=== PATIENT | female | born 1955 | race Caucasian/White ===

== ENCOUNTER 2022-11-29 09:30 | Emergency (ER) | payer OTHER, SELFPAY ==
[2022-11-29 09:38] VITALS: BP 173/94; PULSE 109; RESP 18
[2022-11-29 09:40] VITALS: BP 173/94; PULSE 110; RESP 18; TEMP 36.4; O2SAT 95; BMI 33.6
--- NOTE | 2022-11-29 09:41 | ECG_ITS ---
APPROVED REPORT Exam: Resting ECG HR:103 bpm ECG Measurements Heart Rate 103 AXES NV 152 P 45 QRSd 103 QRS 2 QT 347 T 47 QTc 406 Conclusion SINUS TACHYCARDIA ABNORMAL RHYTHM ECG UNCONFIRMED REPORT Electronically signed by : Jose Raul Pool MD 11/30/2022 19:55:42
--- NOTE | 2022-11-29 09:42 | CT_ITS ---
PROCEDURE INFORMATION: Exam: CT Abdomen And Pelvis With Contrast Exam date and time: 11/29/2022 10:17 AM Age: 67 years old Clinical indication: Abdominal pain; Generalized; Additional info: Llq abd pain and bloating TECHNIQUE: Imaging protocol: Computed tomography of the abdomen and pelvis with contrast. Radiation optimization: All CT scans at this facility use at least one of these dose optimization techniques: automated exposure control; mA and/or kV adjustment per patient size (includes targeted exams where dose is matched to clinical indication); or iterative reconstruction. Contrast material: ISOVUE; Contrast volume: 75 ml; Contrast route: IV; REPORTING DATA: Count of CT and Cardiac NM exams in prior 12 months: This patient has received 0 known CTs and 0 known cardiac nuclear medicine studies in the 12 months prior to the current study. COMPARISON: No relevant prior studies available. FINDINGS: Liver: Hepatic steatosis Gallbladder and bile ducts: Normal. No calcified stones. No ductal dilation. Pancreas: Normal. No ductal dilation. Spleen: Calcified splenic granuloma Adrenal glands: Normal. No mass. Kidneys and ureters: Normal. No hydronephrosis. Stomach and bowel: Colonic diverticulosis. Very mild stranding of the pericolonic mesenteric fat is demonstrated in the region of the distal descending and sigmoid colon. Mild changes of diverticulitis could not be excluded. Clinically correlate. Appendix: No evidence of appendicitis. Intraperitoneal space: Unremarkable. No free air. No significant fluid collection. Vasculature: Unremarkable. No abdominal aortic aneurysm. Lymph nodes: Unremarkable. No enlarged lymph nodes. Urinary bladder: Unremarkable as visualized. Reproductive: Fibroid uterus. Bones/joints: 3 mm anterolisthesis of L4 with respect to L5. Soft tissues: Unremarkable. IMPRESSION: Colonic diverticulosis. Very mild stranding of the pericolonic mesenteric fat is demonstrated in the region of the distal descending and sigmoid colon. Mild changes of diverticulitis could not be excluded. Clinically correlate.
--- NOTE | 2022-11-29 09:44 | HMH.EDGENADL ---
Discharge Plan Disposition Patient Disposition: Home, Self-Care Condition: Fair Prescriptions Prescriptions: New amoxicillin-pot clavulanate 875-125 mg tablet 1 tab PO BID 7 Days Qty: 14 0RF No Action atorvastatin 40 mg tablet 40 mg PO DAILY Patient Comments: TAKE 1 TABLET BY MOUTH EVERY NIGHT metformin 500 mg tablet 500 mg PO BID Patient Comments: TAKE 2 TABLETS BY MOUTH TWICE DAILY WITH MEALS metoprolol succinate 25 mg tablet extended release 24 hr 25 mg PO DAILY Patient Comments: TAKE 1 TABLET BY MOUTH EVERY DAY FOR BLOOD PRESSURE losartan 100 mg tablet 100 mg PO DAILY Patient Comments: TAKE 1 TABLET BY MOUTH EVERY DAY FOR BLOOD PRESSURE glipizide 5 mg tablet 5 mg PO BID Patient Comments: TAKE 1 TABLET BY MOUTH TWICE DAILY BEFORE MEALS Referrals Follow up/Referrals: Provider,Referral, MD [Primary Care Provider] - See instructions Activity Restrictions/Add. Instructions Additional Instructions/Restrictions: At this time is felt you are safe to be discharged home. If new or worsening symptoms please do not hesitate to return the emergency department. Please advance your diet as tolerated as we discussed. Please take your medications as discussed and follow-up with your family doctor within the next 5 days for continued evaluation. Clinical Impressions Clinical Impression: Diverticulitis, Fibroid, uterine Instructions Patient Instructions: DI for Diverticulitis Discharge ED Provider: Enzo Villarreal General Adult HPI General Chief complaint: Abdominal Pain Stated complaint: left side and stomach pain, right shoulder Time Seen by Provider: 11/29/22 09:34 Mode of Arrival: Ambulatory Source of Information: Patient Limitations: No Limitations Description of Symptoms (Recalled from ER Triage Doc. by RN): since yesterday pt has noticed upper abd pain and pain below her right shoulder blade with diarrhea and nausea. pt denies fever soa or CP. History of Present Illness HPI narrative: Patient is a 67-year-old female with past medical history of [id number] diabetes who presents emergency department for evaluation of abdominal pain. Onset was acute, over the last 24 hours, left upper quadrant, left lower quadrant. There is associated bloating. Patient is stooling regularly, denies blood in her stool. Nausea without associated vomiting. Patient is moderate to severe in intensity. Denies chest pain, cough, shortness of breath, fevers. No other acute complaints at this time. Patient has had no previous abdominal surgeries. Related Data Home Medications Medication Instructions Recorded Confirmed atorvastatin 40 mg tablet 40 mg PO DAILY High Cholesterol 11/29/22 11/29/22 glipizide 5 mg tablet 5 mg PO BID Diabetes 11/29/22 11/29/22 losartan 100 mg tablet 100 mg PO DAILY High Blood Pressure 11/29/22 11/29/22 metformin 500 mg tablet 500 mg PO BID Diabetes 11/29/22 11/29/22 metoprolol succinate 25 mg 25 mg PO DAILY High Blood Pressure 11/29/22 11/29/22 tablet,extended release 24 hr Previous Rx's Medication Instructions Recorded amoxicillin 875 mg-potassium 1 tab PO BID 7 days #14 tabs 11/29/22 clavulanate 125 mg tablet Allergies Allergy/AdvReac Type Severity Reaction Status Date / Time No Known Allergies Allergy Verified 11/29/22 09:47 [facility] Disclaimer: The information contained in this section may have been updated after the patient was seen, as this information can be updated by other users. Medical History (Updated 11/29/22 @ 13:36 by Enzo Villarreal MD) Diabetes Hyperlipidemia Hypertension Surgical History (Updated 11/29/22 @ 09:53 by Jerry Cisneros RN) History of tonsillectomy Tubal ligation status Social History (Updated 11/29/22 @ 09:54 by Jerry Cisneros RN) Smoking Status: Never smoker alcohol intake: never current occupational status: employed and unemployed Travel in
[2022-11-29 09:57] LABS: Microscopic, Urine URINE MICROSCOPIC (MICROSCOPIC)
[2022-11-29 09:58] LABS: Appearance,Urine CLEAR (Clear); Bilirubin,Urine Negative (Negative); Blood, Urine TRACE-I (Negative); Color,Urine YELLOW (Yellow); Glucose,Urine (UA) Negative (Negative); Ketones,Urine Negative (Negative); Leukocyte Esterase,Urine Negative (Negative); Nitrate,Urine Negative (Negative); Protein,Urine TRACE (Negative); Specific Gravity, Urine >= 1.030 (1.005-1.030); Urobilinogen,Urine 0.2 EU/dl (0.2)
[2022-11-29 09:58] LABS: Basophils % 0.3 % (0.1-2.0); Eosinophils # 0.1 K/mm3 (0.0-0.4); Eosinophils % 0.6 % (0.1-12.0); Hematocrit 45.6 % (37.0-47.0); Hemoglobin 14.5 g/dL (12.2-16.2); Lymphocytes % 20.8 % (10-50); Mean Corpuscular HGB Conc 31.8 g/dL (31.8-35.4); Mean Corpuscular Hemoglobin 27.5 pg (27.0-31.2); Mean Corpuscular Volume 86.7 fl (81-99); Mean Platelet Volume 7.6 fl (7.4-10.4); Monocytes # 0.3 K/mm3 (0.1-1.0); Monocytes % 3.1 % (1.7-9.3); Neutrophils # 7.1 K/mm3 (1.8-7.8); Neutrophils % 75.3 % (37.0-80.0); Platelet Count 381 K/mm3 (142-424); Red Blood Count 5.26 M/mm3 (4.20-5.40); Red Cell Distribution Width 14.1 % (11.5-17.5); White Blood Count 9.5 K/mm3 (4.8-10.8)
[2022-11-29 10:07] LABS: Alanine Aminotransferase 42 U/L (12-78); Albumin Level 4.8 g/dl (3.5-5.0); Albumin/Globulin Ratio 1.5 (1.1-1.8); Alkaline Phosphatase 114 U/L (38-126); Aspartate Amino Transferase 37 U/L (14-36); Bilirubin,Total 0.6 mg/dl (0.2-1.3); Blood Urea Nitrogen 14 mg/dl (7-17); Calcium 10.4 mg/dl (8.4-10.2); Carbon Dioxide 22 mmol/L (22.0-30.0); Chloride 104 mmol/L (98-107); Creatinine Clearance Estimated 71 mL/min (50-200); Estimated Glomerular Filt Rate 100 ml/min (>60); GFR (African American) 121 ML/MIN (>60); Globulin 3.1 g/dL (1.3-3.2); Glucose 159 mg/dl (74-100); Lipase 69 U/L (23-300); Sodium 137 mmol/L (136-145); Total Protein,Serum 7.9 g/dl (6.3-8.2)
[2022-11-29 10:08] LABS: Bacteria,Urine Trace /lpf; Squamous Epithelial Cell,Urine Occasional #/hpf (0-5)
[2022-11-29 10:09] LABS: Lactic Acid 2.4 mmol/L (0.7-2.1)
--- NOTE | 2022-11-29 10:13 | PC.NURSE ---
rad here to take pt to ct
[2022-11-29 10:21] LABS: Troponin I < 0.01 ng/ml (0.00-0.034)
--- NOTE | 2022-11-29 10:22 | PC.NURSE ---
pt transported to ct via stretcher and vegetable grader
--- NOTE | 2022-11-29 10:55 | PC.NURSE ---
PT ASSISTED TO BR
[2022-11-29 11:06] VITALS: BP 132/65; PULSE 87; RESP 17; O2SAT 95
[2022-11-29 11:31] VITALS: BP 145/68; PULSE 66; RESP 18; O2SAT 98
[2022-11-29 12:01] VITALS: BP 136/69; PULSE 69; RESP 18; O2SAT 97
--- NOTE | 2022-11-29 12:03 | PC.NURSE ---
pt up to bathroom
--- NOTE | 2022-11-29 13:33 | PC.NURSE ---
ICE WATER PROVIDED FOR PT
[2022-11-29 13:54] LABS: Reflex Lactic Add Lactic Reflex
[2022-11-29 13:57] VITALS: BP 132/61; PULSE 80; RESP 18; TEMP 36.7; O2SAT 98
== END 2022-11-29 14:02 | disposition home or self-care (01) ==
PROVIDERS: Emergency Provider Emergency Medicine; PCP Nurse Practitioner
DX: K57.92 Diverticulitis of intestine, part unspecified, without perforation or abscess without bleeding (principal); D25.9 Leiomyoma of uterus, unspecified; R10.12 Left upper quadrant pain; R10.32 Left lower quadrant pain; R11.0 Nausea; E11.9 Type 2 diabetes mellitus without complications; E78.5 Hyperlipidemia, unspecified; I10 Essential (primary) hypertension; R00.0 Tachycardia, unspecified
CPT/HCPCS: 74177; 80053; 81001; 83605; 83690; 84484; 85025; 87040; 93005; 96361; 96365; 96375; 99285; J2405; J2543; Q9967

== ENCOUNTER 2023-01-27 08:58 | Emergency (ER) | payer OTHER, SELFPAY ==
[2023-01-27] VITALS (10 sets, daily range): BP systolic 120–167; BP diastolic 58–78; PULSE 77–101; RESP 20; TEMP 36.5; O2SAT 96–99; BMI 32.3
[2023-01-27 09:19] LABS: Microscopic, Urine URINE MICROSCOPIC (MICROSCOPIC)
[2023-01-27 09:21] LABS: Appearance,Urine CLEAR (Clear); Blood, Urine Negative (Negative); Color,Urine YELLOW (Yellow); Glucose,Urine (UA) Negative (Negative); Ketones,Urine TRACE (Negative); Leukocyte Esterase,Urine TRACE (Negative); Nitrate,Urine Negative (Negative); PH,Urine 5.5 (5.0-8.5); Protein,Urine Negative (Negative); Specific Gravity, Urine >= 1.030 (1.005-1.030); Urobilinogen,Urine 0.2 EU/dl (0.2)
[2023-01-27 09:24] LABS: Basophils % 0.5 % (0.1-2.0); Eosinophils # 0.1 K/mm3 (0.0-0.4); Hematocrit 43.5 % (37.0-47.0); Hemoglobin 13.5 g/dL (12.2-16.2); Lymphocytes # 2.1 K/mm3 (0.7-4.5); Lymphocytes % 28.9 % (10-50); Mean Corpuscular HGB Conc 31.1 g/dL (31.8-35.4); Mean Corpuscular Hemoglobin 27.7 pg (27.0-31.2); Mean Corpuscular Volume 89.1 fl (81-99); Monocytes # 0.5 K/mm3 (0.1-1.0); Monocytes % 7.4 % (1.7-9.3); Neutrophils # 4.5 K/mm3 (1.8-7.8); Neutrophils % 62.2 % (37.0-80.0); Platelet Count 403 K/mm3 (142-424); Red Blood Count 4.88 M/mm3 (4.20-5.40); Red Cell Distribution Width 14.5 % (11.5-17.5); White Blood Count 7.2 K/mm3 (4.8-10.8)
[2023-01-27 09:25] LABS: Chloride 99 mmol/L (98-107); Sodium 135 mmol/L (136-145)
[2023-01-27 09:26] LABS: Potassium 3.7 mmoL/L (3.5-5.1)
[2023-01-27 09:28] LABS: Alanine Aminotransferase 42 U/L (12-78); Albumin Level 4.1 g/dl (3.5-5.0); Albumin/Globulin Ratio 1.1 (1.1-1.8); Alkaline Phosphatase 97 U/L (38-126); Anion Gap 15.7 mEq/L (5-15); Aspartate Amino Transferase 48 U/L (14-36); Bilirubin,Total 0.6 mg/dl (0.2-1.3); Blood Urea Nitrogen 31 mg/dl (7-17); Carbon Dioxide 24 mmol/L (22.0-30.0); Creatinine Clearance Estimated 62 mL/min (50-200); Estimated Glomerular Filt Rate 50 ml/min (>60); GFR (African American) 60 ML/MIN (>60); Globulin 3.7 g/dL (1.3-3.2); Total Protein,Serum 7.8 g/dl (6.3-8.2)
[2023-01-27 09:29] LABS: Calcium 9.3 mg/dl (8.4-10.2); Glucose 160 mg/dl (74-100)
--- NOTE | 2023-01-27 09:33 | CT_ITS ---
FINAL REPORT TECHNIQUE: Thin section axial images were obtained through the abdomen after intravenous contrast. Reconstruction images were obtained from the axial data. Exam was performed using dose reduction techniques. CLINICAL HISTORY: LLQ abd pain, vomiting, h/o diverticulitis COMPARISON: 11/29/2022 FINDINGS: The lung bases are clear. The liver is homogeneous. The gallbladder is present. The spleen, adrenal glands, and pancreas are unremarkable. There is no hydronephrosis or solid renal mass. Abdominal GI tract is without acute abnormality. There is no abdominal lymphadenopathy or ascites. The uterus is mildly enlarged and lobular consistent with fibroids. There is long segment colonic wall thickening, most pronounced distally most consistent with colitis. There is diverticulosis. The appendix is normal. There is no pelvic lymphadenopathy or ascites. No acute osseous abnormalities identified. IMPRESSION: Long segment colonic wall thickening most consistent with infectious or inflammatory colitis. Reviewed, Interpreted and Dictated by Annelise Medina MD Transcribed by Keyla Garcia Authenticated and [facility]
[2023-01-27 09:37] LABS: Bilirubin,Urine 1+ (Negative)
[2023-01-27 09:38] LABS: Bacteria,Urine Trace /lpf; Hyaline Casts,Urine Occasional #/lpf (0); Squamous Epithelial Cell,Urine Occasional #/hpf (0-5); WBC,Urine Occasional #/hpf (0-3)
--- NOTE | 2023-01-27 09:38 | HMH.EDGENADL ---
Discharge Plan Disposition Patient Disposition: Home, Self-Care Prescriptions Prescriptions: New ondansetron 4 mg tablet,disintegrating 4 mg PO Q8H PRN (Reason: nausea and vomiting) 5 Days Qty: 15 0RF No Action atorvastatin 40 mg tablet 40 mg PO DAILY Patient Comments: TAKE 1 TABLET BY MOUTH EVERY NIGHT metformin 500 mg tablet 500 mg PO BID Patient Comments: TAKE 2 TABLETS BY MOUTH TWICE DAILY WITH MEALS metoprolol succinate 25 mg tablet extended release 24 hr 25 mg PO DAILY Patient Comments: TAKE 1 TABLET BY MOUTH EVERY DAY FOR BLOOD PRESSURE losartan 100 mg tablet 100 mg PO DAILY Patient Comments: TAKE 1 TABLET BY MOUTH EVERY DAY FOR BLOOD PRESSURE glipizide 5 mg tablet 5 mg PO BID Patient Comments: TAKE 1 TABLET BY MOUTH TWICE DAILY BEFORE MEALS amoxicillin-pot clavulanate 875-125 mg tablet 1 tab PO BID 7 Days Qty: 14 0RF Referrals Follow up/Referrals: Albert Mota [Primary Care Provider] - See instructions Activity Restrictions/Add. Instructions Additional Instructions/Restrictions: At this time is felt you are safe to be discharged home. If new or worsening symptoms please do not hesitate to return the emergency department. If you are unable to drink significant amounts of water with your nausea medicine please return for repeat evaluation at the emergency department. If symptoms persist on Wednesday follow-up outpatient with your family doctor. Please take your nausea medicine as prescribed. Discontinue your metronidazole. Please continue taking your course of ciprofloxacin. Clinical Impressions Clinical Impression: Campylobacter diarrhea Instructions Patient Instructions: DI for Acute Abdominal Pain Discharge ED Provider: William Liz General Adult HPI <William Liz MD - Last Filed: 01/28/23 15:14> General Chief complaint: Abdominal Pain Stated complaint: pain in Lt side, diarrhea, vomiting Time Seen by Provider: 01/27/23 09:10 Mode of Arrival: Ambulatory Source of Information: Patient Limitations: No Limitations Description of Symptoms (Recalled from ER Triage Doc. by RN): pt to ed c/o left flank pain that radiates into her groin that started on wednesday. pt states she has been being treated for diverticulitis. pt reports diarrhea and vomiting. History of Present Illness HPI narrative: 67-year-old female with history of diverticulitis, hypertension, hyperlipidemia, diabetes presenting with abdominal pain. Patient states that she was seen by her family doctor on Wednesday secondary to groin pain that started on Wednesday. On Wednesday, 2 days prior to arrival, patient was started on ciprofloxacin and metronidazole for presumed diverticulitis. She has been taking her medications. Patient has had decreased p.o. intake, general malaise, left lower quadrant pain, diarrhea that is green and slimy. Also having nonbloody, nonbilious vomiting. Denies objective fevers or chills, dysuria hematuria, abnormal vaginal discharge or bleeding, rash, any recent travel, or any other concerns. Related Data Home Medications Medication Instructions Recorded Confirmed atorvastatin 40 mg tablet 40 mg PO DAILY High Cholesterol 11/29/22 01/27/23 glipizide 5 mg tablet 5 mg PO BID Diabetes 11/29/22 01/27/23 losartan 100 mg tablet 100 mg PO DAILY High Blood Pressure 11/29/22 01/27/23 metformin 500 mg tablet 500 mg PO BID Diabetes 11/29/22 01/27/23 metoprolol succinate 25 mg 25 mg PO DAILY High Blood Pressure 11/29/22 01/27/23 tablet,extended release 24 hr Previous Rx's Medication Instructions Recorded amoxicillin 875 mg-potassium 1 tab PO BID 7 days #14 tabs 11/29/22 clavulanate 125 mg tablet ondansetron 4 mg disintegrating 4 mg PO Q8H PRN nausea and 01/27/23 tablet vomiting 5 days #15 tabs Allergies Allergy/AdvReac Type Severity Reaction Status Date / Time No Known Allergies Allergy Verified 11/29/22 09:47 [facility] <William Solitario
[2023-01-27 09:42] LABS: VBG Base Excess -1.9 mmol/L (-2.4-2.3); VBG HCO3 24.1 mmol/L (23-30); VBG Oxygen Saturation 64.3 % (50-70); VBG PCO2 47.6 mmol/L (35-51); VBG PH 7.32 mmol/L (7.31-7.41); VBG PO2 34.3 mmol/L (28-40); VBG Total CO2 25.6 mmol/L (23-27)
[2023-01-27 09:48] LABS: Lactate Arterial 2.4 mmol/L (0.4-2.0)
[2023-01-27 09:48] LABS: Lipase 108 U/L (23-300)
--- NOTE | 2023-01-27 10:11 | PC.NURSE ---
pt back from CT
--- NOTE | 2023-01-27 10:46 | PC.NURSE ---
contacted rad to to check on status of ct results-rad staff reports no results at this time
--- NOTE | 2023-01-27 12:07 | PC.NURSE ---
Dr. Liz at [facility] to update pt on POC
[2023-01-27 12:32] LABS: Adenovirus F 40/41, stool Not Detected (NotDetected); Astrovirus Not Detected (NotDetected); Clostridium Difficile A/B, PCR Not Detected (NotDetected); Cryptosporidium Not Detected (NotDetected); Cyclospora Cayetanesis Not Detected (NotDetected); Entamoeba histolytica Not Detected (NotDetected); Enteroaggregative E coli Not Detected (NotDetected); Enteropathogenic E coli Not Detected (NotDetected); Enterotoxigenic E coli Not Detected (NotDetected); Giardia lamblia Not Detected (NotDetected); Norovirus Not Detected (NotDetected); Plesimonas Shigalloides, PCR Not Detected (NotDetected); Rotavirus A Not Detected (NotDetected); Salmonella, PCR Not Detected (NotDetected); Sapovirus Not Detected (NotDetected); Shiga-like toxin E coli Not Detected (NotDetected); Shigella Enterovasive E coli Not Detected (NotDetected); Vibrio Cholerae Not Detected (NotDetected); Vibrio, PCR Not Detected (NotDetected); Yersinia Entercolitica, PCR Not Detected (NotDetected)
--- NOTE | 2023-01-27 13:02 | PC.NURSE ---
pt resting at bs no needs call light at bs
[2023-01-27 15:21] LABS: Campylobacter Detected (NotDetected)
--- NOTE | 2023-01-27 15:22 | PC.NURSE ---
lab called with diarrhea panel results- camplobacter positive- notified ER MD Villarreal
--- NOTE | 2023-01-27 15:27 | PC.NURSE ---
Dr. Villarreal at BS
--- NOTE | 2023-01-27 15:44 | PC.NURSE ---
pt given Ice water at this time for PO challenge. pt notified that ER MD Villarreal wants to stay for 30 minutes for PO challenge to make sure she tolerate intake, pt verbalized understanding
== END 2023-01-27 16:18 | disposition home or self-care (01) ==
PROVIDERS: Emergency Provider Emergency Medicine; PCP Family Medicine
DX: A04.5 Campylobacter enteritis (principal); I10 Essential (primary) hypertension; E78.5 Hyperlipidemia, unspecified; E11.9 Type 2 diabetes mellitus without complications
CPT/HCPCS: 74177; 80053; 81001; 82803; 83605; 83690; 85025; 87506; 96361; 96374; 96375; 99285; J0131; J2405; Q9967

== ENCOUNTER 2023-12-18 18:19 | Emergency (ER) | payer OTHER, SELFPAY ==
[2023-12-18 18:21] VITALS: BP 187/82; PULSE 69; RESP 18; TEMP 36.6; O2SAT 99; BMI 32.1
--- NOTE | 2023-12-18 18:30 | CT_ITS ---
PROCEDURE INFORMATION: Exam: CTA Neck With Contrast Exam date and time: 12/18/2023 8:15 PM Age: 68 years old Clinical indication: Other: Neck pain; Additional info: R spontaneous severe pain TECHNIQUE: Imaging protocol: Computed tomographic angiography of the neck with contrast. Exam focused on the cervical segments of the vasculature. 3D rendering (Not supervised by radiologist): MIP and/or 3D reconstructed images were created by the technologist. Radiation optimization: All CT scans at this facility use at least one of these dose optimization techniques: automated exposure control; mA and/or kV adjustment per patient size (includes targeted exams where dose is matched to clinical indication); or iterative reconstruction. Contrast material: ISOVUE; Contrast volume: 80 ml; Contrast route: INTRAVENOUS (IV); COMPARISON: No relevant prior studies available. FINDINGS: Thoracic Vessels: Visualized aortic arch is unremarkable. No significant narrowing at the origin of the neck vessels. . Common Carotid Arteries: Common carotid arteries are without acute flow limiting stenosis. . Cervical Internal Carotid Arteries: Mild to moderate calcific/noncalcific plaque at the carotid bifurcation extending to the carotid bulb without acute flow-limiting stenosis of the cervical internal carotid arteries. No evidence of an aneurysm or a dissection. . Vertebral Arteries: Asymmetric attenuated/hypoplastic nondominant LEFT vertebral artery terminating primarily as PICA. Cervical vertebral arteries are without acute flow limiting stenosis. . Other Structures: Chronic degenerative changes in the visualized spine and shoulder joint(s). Scarring, ground-glass opacities, septal and peribronchial thickening in the lung apices with distal airway narrowing. Indeterminate RIGHT thyroid nodule. Mild chronic mucoperiosteal thickening in the visualized paranasal sinuses. IMPRESSION: Chronic atherosclerotic disease without acute flow-limiting stenosis, no occlusion, aneurysm or dissection of the carotid and vertebral arteries in the neck. REFERENCES: NASCET CRITERIA. The degree of stenosis in the cervical segment of the internal carotid artery is based on NASCET criteria. Normal is no stenosis. Mild is less than 50% stenosis. Moderate is 50-69% stenosis. Severe is 70% to 99% stenosis. Total occlusion is no detectable patent lumen.
--- NOTE | 2023-12-18 18:31 | HMH.EDGENADL ---
Discharge Plan Disposition Patient Disposition: Home, Self-Care Condition: Good Prescriptions Prescriptions: New methocarbamol 500 mg tablet 500 mg PO Q8H 3 Days Qty: 9 0RF No Action atorvastatin 40 mg tablet 40 mg PO DAILY Patient Comments: TAKE 1 TABLET BY MOUTH EVERY NIGHT metformin 500 mg tablet 500 mg PO BID Patient Comments: TAKE 2 TABLETS BY MOUTH TWICE DAILY WITH MEALS metoprolol succinate 25 mg tablet extended release 24 hr 25 mg PO DAILY Patient Comments: TAKE 1 TABLET BY MOUTH EVERY DAY FOR BLOOD PRESSURE losartan 100 mg tablet 100 mg PO DAILY Patient Comments: TAKE 1 TABLET BY MOUTH EVERY DAY FOR BLOOD PRESSURE glipizide 5 mg tablet 5 mg PO BID Patient Comments: TAKE 1 TABLET BY MOUTH TWICE DAILY BEFORE MEALS amoxicillin-pot clavulanate 875-125 mg tablet 1 tab PO BID 7 Days Qty: 14 0RF ondansetron 4 mg tablet,disintegrating 4 mg PO Q8H PRN (Reason: nausea and vomiting) 5 Days Qty: 15 0RF Referrals Follow up/Referrals: Albert Mota [Primary Care Provider] - See instructions Clinical Impressions Clinical Impression: Acute neck pain Stand Alone Forms Stand Alone Forms: Work/School Release Instructions Patient Instructions: DI for Neck Pain Print Language Print Language: Bulgarian Discharge ED Provider: Beau Clarke General Adult HPI <Enzo Villarreal MD - Last Filed: 12/18/23 18:42> General Chief complaint: Extremity Problem,Nontraumatic Stated complaint: Right shoulder pain Time Seen by Provider: 12/18/23 18:23 History of Present Illness HPI narrative: Patient is a 68-year-old female with past medical history of diabetes presents to the emergency department for evaluation of right shoulder and neck pain. Onset was acute, over the last 72 hours. Patient denies any trauma and has difficulty remembering if it was present upon awaking or any other inciting event. She has no neck manipulation lately. She has not had this pain before. 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 No other acute complaints at this time. Denies chest pain, abdominal pain Related Data Home Medications ?Medication ?Instructions ?Recorded ?Confirmed atorvastatin 40 mg tablet 40 mg PO DAILY High Cholesterol 11/29/22 01/27/23 glipizide 5 mg tablet 5 mg PO BID Diabetes 11/29/22 01/27/23 losartan 100 mg tablet 100 mg PO DAILY High Blood Pressure 11/29/22 01/27/23 metformin 500 mg tablet 500 mg PO BID Diabetes 11/29/22 01/27/23 metoprolol succinate 25 mg 25 mg PO DAILY High Blood Pressure 11/29/22 01/27/23 tablet,extended release 24 hr Previous Rx's ?Medication ?Instructions ?Recorded amoxicillin 875 mg-potassium 1 tab PO BID 7 days #14 tabs 11/29/22 clavulanate 125 mg tablet ondansetron 4 mg disintegrating 4 mg PO Q8H PRN nausea and 01/27/23 tablet vomiting 5 days #15 tabs methocarbamol 500 mg tablet 500 mg PO Q8H 3 days #9 tabs 12/18/23 Allergies Allergy/AdvReac Type Severity Reaction Status Date / Time No Known Allergies Allergy Verified 11/29/22 09:47 PFS <Enzo Villarreal MD - Last Filed: 12/18/23 18:42> [facility] Disclaimer: The information contained in this section may have been updated after the patient was seen, as this information can be updated by other users. Medical History (Updated 12/18/23 @ 18:42 by Enzo Villarreal MD) Hyperlipidemia Diabetes Hypertension Surgical History (Updated 11/29/22 @ 09:53 by Jerry Cisneros RN) Tubal ligation status History of tonsillectomy Social History (Updated 11/29/22 @ 13:36 by Enzo Villarreal MD) Smoking Status: Never smoker alcohol intake: never current occupational status: employed and unemployed Travel in the last 8 weeks: None <Enzo Villarreal MD - Last Filed: 12/18/23 18:42> ROS Obtained: Yes Systems reviewed as appropriate & no additional complaints except as documented Physical Exam <Enzo Villarreal MD - Last Filed: 12/18/23 18:42> General General appearance: alert and in no apparent distress Head Head exam: atraumatic and normocephalic Eye Eye exam: Present PERRL and EOMI ENT ENT exam: Present mucous membranes moist Neck Neck exam: Present normal inspection and full ROM (Painful range of motion turning head to the left causing pain in the right neck.) Chest Chest inspection: Present normal inspection and symmetric chest wall rise Respiratory Respiratory exam: Present normal lung sounds bilaterally; Absent respiratory distress Cardiovascular Cardiovascular exam: Present regular rate and normal rhythm Abdominal Exam Abdominal exam: Present soft; Absent tenderness Extremities Exam Extremities exam: Present normal inspection and other (Active and passive range of motion at the right shoulder produces right neck pain. Palpable right radial pulse.) Neurological Exam Neurological exam: Present alert, oriented X3 and CN II-XII intact; Absent motor sensory deficit Psychiatric Psychiatric exam: Present normal affect Skin Skin exam: Present warm and dry Medical Decision Making <Enzo Villarreal MD - Last Filed: 12/18/23 18:42> [facility] Pt receiving controlled substance: No Vital Signs: 12/18/23 18:21 12/18/23 21:33 12/18/23 23:21 Temperature 97.8 F 97.8 F Temperature Source Oral Oral Pulse Rate 66 85 Pulse Rate [Left Radial] 69 Respiratory Rate 18 20 20 Blood Pressure 151/77 H 150/82 H Blood Pressure [Right Arm] 187/82 H Blood Pressure Mean [Right Arm] 117 Blood Pressure Source Automatic Cuff Automatic Cuff Blood Pressure Source [Right Arm] Automatic Cuff Blood Pressure Position Sitting Blood Pressure Position [Right Arm] Sitting 02 Sat by Pulse Oximetry 99 99 Oxygen Delivery Method Room Air Room Air Room Air Lab Data Lab Results 12/18/23 18:43: WBC 7.2, RBC 4.58, Hgb 13.3, Hct 42.6, MCV 93.0, MCH 29.1, MCHC 31.3 L, RDW 14.4, Plt Count 373, MPV 7.3 L, Neut % (Auto) 45.2, Lymph % (Auto) 47.2, Weld % (Auto) 3.9, Eos % (Auto) 3.1, Baso % (Auto) 0.6, Neut # (Auto) 3.3, Lymph # (Auto) 3.4, Weld # (Auto) 0.3, Eos # (Auto) 0.2, Baso # (Auto) 0.0, Sodium 134 L, Potassium 4.4, Chloride 103, Carbon Dioxide 25, Anion Gap 10.4, BUN 17, Creatinine 0.70, Estimated Creat Clear 67, Estimated GFR 84, Est GFR ( Amer) 101, Glucose 141 H, Calcium 9.5 12/18/23 18:43 12/18/23 18:43 Orders (Tests/Meds): ED MEDICATIONS Discontinued Medications Generic Name Dose Route Start Last Admin Trade Name Freq PRN Reason Stop Dose Admin Acetaminophen 1,000 mg 12/18/23 18:30 12/18/23 18:45 Acetaminophen 1,000mg/100ml Vial IV 12/18/23 18:31 1,000 mg ONCE ONE Administration Iopamidol 80 ml 12/18/23 20:18 12/18/23 20:19 Iopamidol-370 (76%);100ml Bottle IV 12/18/23 20:19 80 ml ONCE ONE Administration Lidocaine 1 each 12/18/23 18:30 12/18/23 18:45 Lidocaine 5% Transdermal Patch TP 12/18/23 18:31 1 each ONCE ONE Administration Methocarbamol 1,000 mg 12/18/23 18:31 12/18/23 18:45 Methocarbamol 500mg Tablet PO 12/18/23 18:32 1,000 mg ONCE ONE Administration Methocarbamol 500 mg 12/18/23 23:10 12/18/23 23:17 Methocarbamol 500mg Tablet PO 12/18/23 23:11 500 mg ONCE ONE Administration Sodium Chloride 50 ml 12/18/23 20:18 12/18/23 20:19 0.9 % Sodium Chloride 50 Ml Vial IV 12/18/23 20:19 50 ml ONCE ONE Administration Sodium Chloride 10 ml 12/18/23 20:18 12/18/23 20:19 Sodium Chloride 0.9% 10ml Syr (Rad Only) IV 12/18/23 20:19 10 ml ONCE ONE Administration ORDERS Category Date Time Status CT angio neck Stat Cat Scan 12/18/23 18:30 Completed Shoulder XR right miminum 2 views [XR shoulder RT min Exams 12/18/23 18:33 Completed 2V] Stat BMP [Basic Metabolic Panel] Stat Lab 12/18/23 18:43 Completed CBC w/Auto Diff [Complete Blood Count Auto Diff] Stat Lab 12/18/23 18:43 Completed Medical Decision Narrative: In summary patient is a 68-year-old female with past medical history described above presents emergency department for evaluation of shoulder and neck pain. Patient is hemodynamically stable nontoxic-appearing upon arrival, afebrile. Differential diagnosis includes neuropathic pain in the neck, musculoskeletal strain, vertebral artery dissection, among others. Workup will be conducted with hematologic labs, CTA neck, plain film right shoulder. Initial inventions include multimodal pain control. Workup and repeat evaluation largely pending at time of transfer of care to the oncoming physician, Dr. Clarke. <Beau Clarke, DO - Last Filed: 12/18/23 23:55> Vital Signs: 12/18/23 18:21 12/18/23 21:33 12/18/23 23:21 Temperature 97.8 F 97.8 F Temperature Source Oral Oral Pulse Rate 66 85 Pulse Rate [Left Radial] 69 Respiratory Rate 18 20 20 Blood Pressure 151/77 H 150/82 H Blood Pressure [Right Arm] 187/82 H Blood Pressure Mean [Right Arm] 117 Blood Pressure Source Automatic Cuff Automatic Cuff Blood Pressure Source [Right Arm] Automatic Cuff Blood Pressure Position Sitting Blood Pressure Position [Right Arm] Sitting 02 Sat by Pulse Oximetry 99 99 Oxygen Delivery Method Room Air Room Air Room Air Lab Data Lab Results 12/18/23 18:43: WBC 7.2, RBC 4.58, Hgb 13.3, Hct 42.6, MCV 93.0, MCH 29.1, MCHC 31.3 L, RDW 14.4, Plt Count 373, MPV 7.3 L, Neut % (Auto) 45.2, Lymph % (Auto) 47.2, Weld % (Auto) 3.9, Eos % (Auto) 3.1, Baso % (Auto) 0.6, Neut # (Auto) 3.3, Lymph # (Auto) 3.4, Weld # (Auto) 0.3, Eos # (Auto) 0.2, Baso # (Auto) 0.0, Sodium 134 L, Potassium 4.4, Chloride 103, Carbon Dioxide 25, Anion Gap 10.4, BUN 17, Creatinine 0.70, Estimated Creat Clear 67, Estimated GFR 84, Est GFR ( Amer) 101, Glucose 141 H, Calcium 9.5 Orders (Tests/Meds): ED MEDICATIONS Discontinued Medications Generic Name Dose Route Start Last Admin Trade Name Freq PRN Reason Stop Dose Admin Acetaminophen 1,000 mg 12/18/23 18:30 12/18/23 18:45 Acetaminophen 1,000mg/100ml Vial IV 12/18/23 18:31 1,000 mg ONCE ONE Administration Iopamidol 80 ml 12/18/23 20:18 12/18/23 20:19 Iopamidol-370 (76%);100ml Bottle IV 12/18/23 20:19 80 ml ONCE ONE Administration Lidocaine 1 each 12/18/23 18:30 12/18/23 18:45 Lidocaine 5% Transdermal Patch TP 12/18/23 18:31 1 each ONCE ONE Administration Methocarbamol 1,000 mg 12/18/23 18:31 12/18/23 18:45 Methocarbamol 500mg Tablet PO 12/18/23 18:32 1,000 mg ONCE ONE Administration Methocarbamol 500 mg 12/18/23 23:10 12/18/23 23:17 Methocarbamol 500mg Tablet PO 12/18/23 23:11 500 mg ONCE ONE Administration Sodium Chloride 50 ml 12/18/23 20:18 12/18/23 20:19 0.9 % Sodium Chloride 50 Ml Vial IV 12/18/23 20:19 50 ml ONCE ONE Administration Sodium Chloride 10 ml 12/18/23 20:18 12/18/23 20:19 Sodium Chloride 0.9% 10ml Syr (Rad Only) IV 12/18/23 20:19 10 ml ONCE ONE Administration ORDERS Category Date Time Status CT angio neck Stat Cat Scan 12/18/23 18:30 Completed Shoulder XR right miminum 2 views [XR shoulder RT min Exams 12/18/23 18:33 Completed 2V] Stat BMP [Basic Metabolic Panel] Stat Lab 12/18/23 18:43 Completed CBC w/Auto Diff [Complete Blood Count Auto Diff] Stat Lab 12/18/23 18:43 Completed Medical Decision Narrative: In summary patient is a 68-year-old female with past medical history described above presents emergency department for evaluation of shoulder and neck pain. Patient is hemodynamically stable nontoxic-appearing upon arrival, afebrile. Differential diagnosis includes neuropathic pain in the neck, musculoskeletal strain, vertebral artery dissection, among others. Workup will be conducted with hematologic labs, CTA neck, plain film right shoulder. Initial inventions include multimodal pain control. Workup and repeat evaluation largely pending at time of transfer of care to the oncoming physician, Dr. Clarke. Upon my assumption of care radiographic imaging pending. CTA neck without noted occlusion, dissection, aneurysm on my independent review and interpretation?please see radiology report for official interpretation. Right shoulder without acute fracture or malalignment per my review. Please see radiology report for official interpretation of radiograph right shoulder on reassessment patient states she is feeling better. Findings of today's evaluation discussed with patient. Patient to follow-up with primary care provider. Prescribed Robaxin for symptomatic control. Given instructions to return to ED if symptoms worsen. Discharged home with hemodynamically stable vitals Critical Care <Enzo Villarreal MD - Last Filed: 12/18/23 18:42> Critical Care Time Critical Care Time: No
--- NOTE | 2023-12-18 18:33 | XR_ITS ---
PROCEDURE INFORMATION: Exam: XR Right Shoulder Exam date and time: 12/18/2023 7:55 PM Age: 68 years old Clinical indication: Pain; Shoulder; Right; Additional info: Atraumatic pain TECHNIQUE: Imaging protocol: Radiologic exam of the right shoulder. Views: 2 or more views. COMPARISON: No relevant prior studies available. FINDINGS: Bones/joints: Chronic degenerative changes. Soft tissues: Soft tissue calcification suspicious for calcific tendinitis. IMPRESSION: 1. Chronic degenerative changes. 2. Soft tissue calcification suspicious for calcific tendinitis.
[2023-12-18] MEDS: LIDOCAINE 5% TRANSDERMAL PATCH 1 EACH TP (18:45)
[2023-12-18] MEDS: METHOCARBAMOL 500MG TABLET 1000 MG PO (18:45)
[2023-12-18] MEDS: ACETAMINOPHEN 1,000MG/100ML VIAL 1000 MG IV (18:45)
[2023-12-18 18:49] LABS: Basophils % 0.6 % (0.1-2.0); Eosinophils # 0.2 K/mm3 (0.0-0.4); Eosinophils % 3.1 % (0.1-12.0); Hematocrit 42.6 % (37.0-47.0); Hemoglobin 13.3 g/dL (12.2-16.2); Lymphocytes # 3.4 K/mm3 (0.7-4.5); Lymphocytes % 47.2 % (10-50); Mean Corpuscular HGB Conc 31.3 g/dL (31.8-35.4); Mean Corpuscular Hemoglobin 29.1 pg (27.0-31.2); Mean Platelet Volume 7.3 fl (7.4-10.4); Monocytes # 0.3 K/mm3 (0.1-1.0); Monocytes % 3.9 % (1.7-9.3); Neutrophils # 3.3 K/mm3 (1.8-7.8); Neutrophils % 45.2 % (37.0-80.0); Platelet Count 373 K/mm3 (142-424); Red Blood Count 4.58 M/mm3 (4.20-5.40); Red Cell Distribution Width 14.4 % (11.5-17.5); White Blood Count 7.2 K/mm3 (4.8-10.8)
[2023-12-18 18:55] LABS: Chloride 103 mmol/L (98-107); Potassium 4.4 mmoL/L (3.5-5.1); Sodium 134 mmol/L (136-145)
[2023-12-18 18:58] LABS: Anion Gap 10.4 mEq/L (5-15); Blood Urea Nitrogen 17 mg/dl (7-17); Calcium 9.5 mg/dl (8.4-10.2); Carbon Dioxide 25 mmol/L (22.0-30.0); Creatinine Clearance Estimated 67 mL/min (50-200); Estimated Glomerular Filt Rate 84 ml/min (>60); GFR (African American) 101 ML/MIN (>60); Glucose 141 mg/dl (74-100)
[2023-12-18] MEDS: 0.9 % SODIUM CHLORIDE 50 ML VIAL IV (20:19)
[2023-12-18] MEDS: SODIUM CHLORIDE 0.9% 10ML SYR (RAD ONLY) 10 ML IV (20:19)
[2023-12-18] MEDS: IOPAMIDOL-370 (76%);100ML BOTTLE 80 ML IV (20:19)
[2023-12-18 21:33] VITALS: BP 151/77; PULSE 66; RESP 20; O2SAT 99
[2023-12-18] MEDS: METHOCARBAMOL 500MG TABLET 500 MG PO (23:17)
[2023-12-18 23:21] VITALS: BP 150/82; PULSE 85; RESP 20; TEMP 36.6; O2SAT 98
== END 2023-12-18 23:22 | disposition home or self-care (01) ==
PROVIDERS: Emergency Medicine; Emergency Provider Student in an Organized Health Care Education/Training Program; PCP Family Medicine
DX: M54.2 Cervicalgia (principal); M25.511 Pain in right shoulder; E11.9 Type 2 diabetes mellitus without complications; E78.5 Hyperlipidemia, unspecified; I10 Essential (primary) hypertension; Z79.84 Long term (current) use of oral hypoglycemic drugs
CPT/HCPCS: 70498; 73030; 80048; 85025; 96374; 99284; J0131; Q9967